=== PATIENT | female | born 1980 | race Hispanic/Latino ===

== ENCOUNTER 2022-10-10 11:11 | Emergency (ER) | payer OTHER ==
--- OUTSIDE RECORDS SUMMARY | 2022-10-10 11:16 | XMS REPORT | Continuity of Care Document ---
:1980 Author Organization [facility] t Address [address] [facility] [address] [place] [address] Care Team Providers Name Role Phone DANIELLE SHELTON Primary Care Physician Unavailable MARCUS LONG Attending Clinician Unavailable Lin Knutson Attending Clinician Doctor Unassigned, [place] Attending Clinician Unavailable LIN TSANG Attending Clinician Unavailable DANIELLE SHELTON Attending Clinician Unavailable Coy Danielle IVAN Attending Clinician [phone] EkRasheeda woo I Attending Clinician Unavailable Rasheeda Harrell I Admitting Clinician Unavailable Payers Payer Name Policy Type Policy Number Effective Date Expiration Date S [facility] [id number] 2021 00:00:00 Problems Condition Condition Condition Status Onset Resolution Last Treating Co mments Source Name Details Category Date Date Treatment Clinician Date Encounter Encounter Disease Active Uni vers for for 11-07 ity [place] of [place] Medical other other Branch contracept contracept precious precious Screening Screening Disease Active Uni vers examinatio examinatio 4-04 it y of n for STD n for STD 00:00[place] (sexually (sexually 00 Medi prateek transmitte transmitte Br anch d disease) d disease) Elevated Elevated Disease Active Unive rs blood blood 4-04 ity of pressure pressure 00:00: [place] reading reading 00 Medical without without Branch diagnosis diagnosis of of hypertensi hypertensi on on BMI BMI Disease Active Univers 33.0-33.9, 33.0-33.9, 4-04 it y of adult adult 00:00: [place] 00 Medical Branch Bilateral Bilateral Disease Active Uni vers breast breast 404 ity of lump lump 00:00: [place] 00 Medical Branch Absent Absent Disease Active Univers menstruati menstruati 3-16 it y of on on 00:00: [place] 00 Medical Branch History of History of Disease Active U nivers bilateral bilateral 3-16 ity of tubal tubal 00:00: [place] ligation ligation 00 Medica l Branch Class 1 Class 1 Disease Active Univers obesity obesity 3-16 ity of due to due to 00:00: [place] excess excess 00 Medical calories calories Branch with body with body mass index mass index (BMI) of (BMI) of 33.0 to 33.0 to 33.9 in 33.9 in adult, adult, unspecifie unspecifie d whether d whether serious serious comorbidit comorbidit y present y present Allergies, Adverse Reactions, Alerts Allergy Allergy Status Severity Reaction(s) Onset Inactive Treating Comm ents Source Name Type Date Date Clinician No Known DA Active [facility] Cont[facility] [place] [facility] No Known DA Active [facility] Drug 08-13 [place] All[facility] No Known DA Active U [facility] Food 08-13 [place] All[facility]ie [facility] No Known DA Active [facility] Other 08-13 [place] All[facility]ie 00:[facility]: [facility] NO KNOWN Drug Active Univers ALLERGIE Class ity of S [facility] Social History Social Habit Start Date Stop Date Quantity Comments Source Alcohol intake 2021-11-07 2021-11-07 Current University of 00:00:00 00:00:00 non-drinker of [facility] alcohol Branch (finding) Tobacco use and 2018-05-31 2018-05-31 Never used Universit y of exposure 00:00:00 00:00:00 [facility] History of 2006-05-31 Smoker University of tobacco use 00:00:00 [facility] Sex Ass[birth year] At [birth year] Universit y of 00:00:00 00:00:00 [facility] Smoking Status Start Date Stop Date Source Former smoker 2018-05-31 00:00:00 2018-05-31 00:00:00 Universi ty of [facility] Medications Ordered Filled Start Stop Current Ordering Indication Dosage Frequency Signature Comments Components Source Medication Medication Date Date Medication? Clinician (SIG) Name Name No known No Univers medications 4-04 ity of 08:55: [address] No known No Univers medications 4-04 ity of 08:55: [address] Immunizations Ordered Filled Immunization Date Status Comments Sourc e Immunization Name Name SARS-COV-2 COVID-19 2021-04-12 Completed Unive rsity of PFIZER VACCINE 00:00:00 [facility] SARS-COV-2 COVID-19 2021-04-12 Completed Unive rsity of PFIZER VACCINE 00:00:00 [facility] SARS-COV-2 COVID-19 2021-03-12 Completed Unive rsity of PFIZER VACCINE 00:00:00 [facility] SARS-COV-2 COVID-19 2021-03-12 Completed Unive rsity of PFIZER VACCINE 00:00:00 [facility] Influenza Virus 2020-10-19 Completed Universit y of Vaccine Quad .5 mL 00:00:00 [facility] IM 6+ MO Branch Influenza Virus 2020-10-19 Completed Universit y of Vaccine Quad .5 mL 00:00:00 [facility] IM 6+ MO Branch Influenza Virus 2018-05-31 Completed Universit y of Vaccine Quad .5 mL 00:00:00 [facility] IM 6+ MO Branch TDAP 2018-05-31 Completed University of 00:00:00 [facility] Influenza Virus 2018-05-31 Completed Universit y of Vaccine Quad .5 mL 00:00:00 [facility] IM 6+ MO Branch TDAP 2018-05-31 Completed University 00:00:00 [facility] PPD (TB) 2014-05-31 Completed University 00:00:00 [facility] PPD (TB) 2014-05-31 Completed University 00:00:00 [facility] TDAP 2008-05-01 Completed University of 00:00:00 [facility] TDAP 2008-05-01 Completed University 00:00:00 [facility] Procedures Procedure Date / Time Performed Performing Clinician Sourc e EXTERNAL PROVIDER 2022-01-09 05:01:00 Doctor Unasslindy, Kayleen Univ [facility] RECORDS Name [facility] Encounters Start End Encounter Admission Attending Care Care Encounter Source Date/Time Date/Time Type Type Clinicians Facility Department ID 2022-11-07 2022-11-07 Outpatient R [facility] [id number] Univers 08:15:00 08:15:00 MARCUS chan o f [facility] 2022-01-11 2022-01-11 Telephone [facility] [id number] Univers 00:00:00 00:00:00 Lin Fairbanks FORMING TUBE SELECTOR [id number] ity of [facility] [id number] Wayne as MATERNAL [phone] Med ical & CHILD [address] [place] [address] 2022-01-09 2022-01-09 Orders Doctor BOSSMAN [id number] Univers 00:00:00 00:00:00 Only Unassigned, VÍCTOR [id number] ity of [place] [facility] [id number] Wayne as [phone] [address] 2021-12-16 2021-12-16 Orders Doctor BOSSMAN [id number] Univers 00:00:00 00:00:00 Only Unassigned, VÍCTOR [id number] ity of [place] [facility] [id number] Wayne as [phone] [address] 2021-12-16 2021-12-16 Telephone [facility] [id number] Univers 00:00:00 00:00:00 Poloa R FORMING TUBE SELECTOR [id number] ity of REGIONAL [id number] Wayne as MATERNAL [phone] [facility] ical & CHILD [address] [place] [address] 2021-12-06 2021-12-06 Telephone [facility] [id number] Univers 00:00:00 00:00:00 Roshunda R [employer]MING T[employer] SELECTOR [id number] ity of REGIONAL [id number] Wayne as MATERNAL [phone] [facility] [address] [place] [address] 2021-12-06 2021-12-06 [facility] [id number] Univers 00:00:00 00:00:00 Roshunda R [employer]MING T[employer] SELECTOR [id number] ity of REGIONAL [id number] Wayne as MATERNAL [id number] [facility] & CHILD [address] [place] [address] 2021-12-05 2021-12-05 [facility] [id number] Univers 00:00:00 00:00:00 Rosnda R [employer]MING T[employer] SELECTOR [id number] ity of REGIONAL [id number] Wayne as MATERNAL [phone] [facility] & CHILD [address] [place] [address] 2021-11-07 2021-11-07 [facility] [id number] Univers 08:15:00 09:27:[address] 2021-11-07 2021-11-07 Outpatient [facility] [id number] Univers 08:15:00 09:27:39 ROSNDA ity o f [facility] 2021-11-07 2021-11-07 Office [facility] [id number] Univers 08:15:00 09:27:39 Visit Rosnda R [employer] [id number] ity of REGIONAL [id number] Wayne as MATERNAL [id number] [facility] [address] [place] [address] 2021-11-07 2021-11-07 Deejay KEITA [id number] Univers 00:00:00 00:00:00 Only Unassigned, VÍCTOR [id number] ity of [place] [facility] [id number] Wayne as [phone] [address] 2021-10-18 2021-10-18 Outpatient R [facility] [id number] Univers 08:00:00 08:00:00 DANIELLE ity [facility] 2021-05-11 2021-05-11 Telephone [facility] [id number] Univers 00:00:00 00:00:00 Danielle L FORMING TUBE SELECTOR [id number] i ty of [facility] [id number] Wayne as MATERNAL [phone] [facility] & CHILD [address] [place] [address] 2021-01-21 2021-01-21 Outpatient R [facility] [id number] Univers 08:45:00 08:45:[facility] 2021-01-07 Outpatient R [facility] [id number] Univers 09:45:00 09:45:00 [facility] 2020-12-20 2020-12-20 Outpatient R [facility] [id number] Univers 09:30:00 09:30:00 [facility] 2020-10-19 2020-10-19 Outpatient R [facility] [id number] Univers 09:15:00 09:15:00 [facility] 2020-04-12 2020-04-02 Inpatient STAR Harrell, [facility] [id number] [id number] [facility] 08:00:00 11:08:12 [place] [address] [facility] 2020-03-11 2020-03-11 Outpatient [facility] PDPFEJL TPY COH 00:00:00 00:00:00 [id number] Results Test Description Test Time Test Comments Results Result [facility] e Comments BREAST ULTRASOUND 2021-12-07 BILATERAL 10:04:54 Name: Justino : 1980 Sex: F - DIAG MAMM BILATERAL [facility] CAD DIGITALBILATERAL DIGITAL DIAGNOSTIC MAMMOGRAM 3D/2D WITH CAD: 12/07/2021LINICAL: Bilateral breast masses. Digital breast tomosynthesis was performed in addition to routine CC and MLO views. Current mammographic images were evaluated by [employer] CAD (computer-aided detection) software. No prior exams were available for comparison. There are scattered fibroglandular tissues in both breasts. There is a 2.5 cm oval mass in the right breast at 12 o'clock. No other significant masses, calcifications, or other findings are seen in either breast. INCOMPLETE: ADDITIONAL IMAGING EVALUATION NEEDEDBilateral ultrasound pending for additional evaluation. - BREAST ULTRASOUND BILATERALULTRASOUND OF BOTH BREASTS AND BOTH AXILLA: 12/07/2021No prior exams were available for comparison. Real-time ultrasound of both breasts and both axilla and clinical breast exam were performed. The palpable mass felt by the patient is a 2.5 cm oval mass in the right breast at 12 o'clock, 3 cm from the nipple. Color flow imaging demonstrates that there is no increase in vascularity. No abnormalities were seen sonographically in the left breast or either axilla. IMPRESSION: SUSPICIOUS OF MALIGNANCY - FOLLOW-UP RECOMMENDEDThe 2.5 cm oval mass in the right breast needs histological evaluation. An ultrasound guided biopsy is recommended. Shira Allen M.D. dm/:12/07/2021 10:04:54 Entry: - 12/09/2021 14:12:51Imaging Technologist: Sayda TOMAS, [facility]-FWletter sent: BIRADS 4/5 Biopsy Mammogram BI-RADS: 0 Incomplete: Additional Imaging Evaluation Needed Ultrasound BI-RADS: 4 Suspicious abnormality DIAG MAMM 2021-12-07 BILATERAL CHI 10:04:54 CAD DIGITAL Name: Justino : 1980 Sex: F - DIAG MAMM BILATERAL [facility] CAD DIGITALBILATERAL DIGITAL DIAGNOSTIC MAMMOGRAM 3D/2D WITH CAD: 12/07/2021LINICAL: Bilateral breast masses. Digital breast tomosynthesis was performed in addition to routine CC and MLO views. Current mammographic images were evaluated by [employer] CAD (computer-aided detection) software. No prior exams were available for comparison. There are scattered fibroglandular tissues in both breasts. There is a 2.5 cm oval mass in the right breast at 12 o'clock. No other significant masses, calcifications, or other findings are seen in either breast. INCOMPLETE: ADDITIONAL IMAGING EVALUATION NEEDEDBilateral ultrasound pending for additional evaluation. - BREAST ULTRASOUND BILATERALULTRASOUND OF BOTH BREASTS AND BOTH AXILLA: 12/07/2021No prior exams were available for comparison. Real-time ultrasound of both breasts and both axilla and clinical breast exam were performed. The palpable mass felt by the patient is a 2.5 cm oval mass in the right breast at 12 o'clock, 3 cm from the nipple. Color flow imaging demonstrates that there is no increase in vascularity. No abnormalities were seen sonographically in the left breast or either axilla.
[2022-10-10] MEDS ORDERED: NA CHLORIDE 0.9% 1,000 ML ONE (11:52)
[2022-10-10 11:54] LABS: MCV 86.8 fL (80-100); RBC Red Blood Cell Count 4.26 M/uL (3.86-4.86)
[2022-10-10 12:26] LABS: Potassium 3.8 mmol/L (3.5-5.1); Troponin High Sensitivity 4.3 pg/mL (<58.9)
--- NOTE | 2022-10-10 12:56 | RAD REPORT ---
EXAM DESCRIPTION: CT - Head Brain Wo Cont - 10/10/2022 12:43 pm CLINICAL HISTORY: HEADACHE Headache, drowsiness COMPARISON: No comparisons TECHNIQUE: All CT scans are performed using dose optimization technique as appropriate and may inclu de automated exposure control or mA/KV adjustment according to patient size. FINDINGS: No intracranial hemorrhage, hydrocephalus or extra-axial fluid collection.No areas of brai n edema or evidence of midline shift. Mild paranasal sinus thickening. The calvarium is intact. IMPRESSION: No acute intracranial abnormality.
--- NOTE | 2022-10-10 12:58 | RAD REPORT ---
EXAM DESCRIPTION: CT - Head angio - 10/10/2022 12:43 pm CLINICAL HISTORY: headache, dizziness Headache, drowsiness, dizziness COMPARISON: Head Brain Wo Cont dated 10/10/2022 TECHNIQUE: CT angiography of the head was performed with MIPs. All CT scans are performed using dose optimization technique as appropriate and may include automated exposure control or mA/KV adjustment according to patient size. FINDINGS: No evidence of large vessel occlusion. No evidence of aneurysm is detected. No flow-limiti ng stenosis or vascular malformation identified. Antegrade flow is seen in the vertebral arteries. The vertebral arteries are codominant. The visualized dural venous sinuses are patent. IMPRESSION: No significant flow abnormality is detected.
--- NOTE | 2022-10-10 13:05 | RAD REPORT ---
EXAM DESCRIPTION: CT - Neck Angio - 10/10/2022 12:43 pm CLINICAL HISTORY: dizziness, headache, syncope Headache, drowsiness, dizziness and syncope COMPARISON: No comparisons TECHNIQUE: CT angiography of the neck vessels was performed with MIPs. All CT scans are performed using dose optimization technique as appropriate and may include automated exposure control or mA/KV adjustment according to patient size. FINDINGS: A left aortic arch is identified with normal three vessel configuration of the great vesse ls. No significant flow abnormality is seen of the common carotid bilaterally. No significant stenosis is identified involving the cervical segments of both internal carotid arteri es. Normal flow is seen within both vertebral arteries. IMPRESSION: No significant flow abnormality of the neck vessels is identified.
--- NOTE | 2022-10-10 15:10 | RAD REPORT ---
EXAM DESCRIPTION: RAD - Knee Left 3 View - 10/10/2022 2:57 pm CLINICAL HISTORY: fall, knee pain COMPARISON: No comparisons FINDINGS: No acute fracture or dislocation is seen. Small suprapatellar joint effusion is seen. If p ain persists, MRI followup would be recommended.
[2022-10-10] MEDS ORDERED: KETOROLAC 30 MG/ML INJ ONE (15:23)
[2022-10-10 15:48] VITALS: TEMP 97.9
[2022-10-10 15:50] VITALS: BP 145/78; O2SAT 100
--- NOTE | 2022-10-10 17:31 | EKG ---
Test Date: 2022-10-10 Test Time: 11:47:14 Campus Supervisor: DILSHAD MEASUREMENT RESULTS: Intervals: Rate: 52 MS: 140 QRSD: 78 QT: 444 QTc: 412 [place]: P: 45 MS: 140 QRS: 56 T: 23 INTERPRETIVE STATEMENTS: Sinus bradycardia Otherwise normal ECG No previous ECG available for comparison Electronically Signed On 10-10-22 17:30:30 [employer] MACHINE OPERATOR by Tai Panda
--- NOTE | 2022-10-27 14:17 | EDPHYS ---
Physician Documentation [facility] Name: Lucy Lamas Age: 41 yrs Sex: Female : 1980 Arrival Date: 10/10/2022 Time: 11:15 Bed Treatment Private MD: ED Physician Darryn Hunter HPI: 10/10 11:31 This 41 yrs old Female presents to ER via Ambulatory with complaints of jmm Dizziness, Headache. 11:31 The patient presents with lightheadedness. Onset: The symptoms/episode began/occurred jmm acutely, 1 week(s) ago. Is a 41-year-old female with no chronic medical conditions presents emerged part with complaints of headache along with syncopal episodes beginning last week. Patient states on the initial fall she injured her left knee. Denies any chest pain or shortness of breath. Complains now of abdominal headache. Denies any vomiting. Historical: - Allergies: 11:29 No Known Allergies; ld1 - PMHx: 11:29 None; ld1 - PSHx: 11:29 section; gastric sleve; Ligation of fallopian tube; Tummy tuck; ld1 - Immunization history:: Adult Immunizations up to date, Client reports receiving the 2nd dose of the Covid vaccine. - Social history:: Smoking status: Patient denies any tobacco usage or history of. Patient/guardian denies using alcohol. ROS: 11:31 Constitutional: Negative for fever, chills, and weight loss, Cardiovascular: Negative jmm for chest pain, palpitations, and edema, Respiratory: Negative for shortness of breath, cough, wheezing, and pleuritic chest pain. 11:31 MS/extremity: Positive for pain. 11:31 Neuro: Positive for dizziness, headache. 11:31 All other systems are negative. Exam: 11:31 Constitutional: This is a well developed, well nourished patient who is awake, alert, jmm and in no acute distress. Head/Face: atraumatic. Eyes: EOMI, no conjunctival erythema appreciated ENT: Moist Mucus Membranes Neck: Trachea midline, Supple Chest/axilla: Normal chest wall appearance and motion. Cardiovascular: Regular rate and rhythm. No edema appreciated Respiratory: Normal respirations, no respiratory distress appreciated Abdomen/GI: Non distended Back: Normal ROM Skin: General appearance color normal 11:31 Musculoskeletal/extremity: Pain noted to the left knee on range of motion, compartments are soft, full dorsalis pedis pulse, neurovascular. 11:31 Skin: Appearance: Color: normal in color. 11:31 Neuro: Orientation: is normal, Mentation: is normal, Memory: is normal. 11:31 Psych: Behavior/mood is pleasant, cooperative. Vital Signs: 11:28 BP 161 / 95; Pulse 58; Resp 18; Temp 97.9(TE); Pulse Ox 97% on R/A; Weight 83.91 kg; ld1 Height 5 ft. 6 in. ; Pain 6/10; 15:44 BP 145 / 78; Pulse 78; Resp 18; Pulse Ox 100% ; mb9 11:28 Body Mass Index 29.86 (83.91 kg, 167.64 cm) ld1 11:28 Pain Scale: Adult ld1 MDM: 11:31 Patient medically screened. [facility] 15:31 Data reviewed: vital signs, nurses notes. [facility] 15:32 Differential diagnosis: cardiac arrhythmia, idiopathic dizziness, near-syncope, [facility] vertigo, Internal derangement of the knee, fracture. I considered the following discharge prescriptions or medication management in the emergency department Medications were administered in the Emergency Department. See MAR. Independent interpretation of the following test(s) in the Emergency Department X-Ray: My interpretation is No fracture appreciated. Counseling: I had a detailed discussion with the patient and/or guardian regarding: the historical points, exam findings, and any diagnostic results supporting the discharge/admit diagnosis, lab results, radiology results, the need for outpatient follow up, to return to the emergency department if symptoms worsen or persist or if there are any questions or concerns that arise at home. 10/10 11:33 Order name: Basic Metabolic Panel [facility] 10/10 11:33 Order name: CBC with Diff [facility] 10/10 11:33 Order name: Troponin HS [facility] 10/10 11:57 Order name: CBC with Automated Diff; Complete Time: 11:58 EDSD 10/10 12:31 Order name: Basic Metabolic Panel; Complete Time: 13:02 [facility] 10/10 12:31 Order name: Troponin High Sensitivity; Complete Time: 13:02 [facility]SD 10/10 11:33 Order name: CT Head Angio [facility] 10/10 11:33 Order name: CT Head Brain wo Cont [facility] 10/10 11:33 Order name: CT Neck Angio [facility] 10/10 12:57 Order name: CT; Complete Time: 13:02 [facility] 10/10 12:58 Order name: CT; Complete Time: 13:02 [facility] 10/10 13:06 Order name: CT; Complete Time: 13:13 [facility] 10/10 14:43 Order name: Knee Left 3 View XRAY [facility] 10/10 15:10 Order name: RAD; Complete Time: 15:15 [facility] 10/10 11:33 Order name: EKG; Complete Time: 11:34 [facility] 10/10 11:33 Order name: Cardiac monitoring; Complete Time: 11:50 [facility] 10/10 11:33 Order name: EKG - Nurse/Tech; Complete Time: 11:50 [facility] 10/10 11:33 Order name: IV Saline Lock; Complete Time: 11:50 [facility] 10/10 11:33 Order name: Labs collected and sent; Complete Time: 11:50 [facility] 10/10 11:33 Order name: O2 Per Protocol; Complete Time: 11:50 [facility] 10/10 11:33 Order name: O2 Sat Monitoring; Complete Time: 11:50 [facility] 10/10 15:15 Order name: Jean-Paul wrap-joint; Complete Time: 15:21 [facility] Administered Medications: 11:50 Drug: NS 0.9% IV 1000 ml Route: IV; Rate: 1 bolus; Site: left antecubital; ld1 15:21 Drug: Ketorolac IVP 30 mg Route: IVP; Site: left antecubital; mb9 Disposition: 16:22 Co-signature as Attending Physician, Darryn JACKMAN was immediately available on-site ms3 in the Emergency Department for consultation in the care of the patient. Disposition Summary: 10/10/22 15:35 Discharge Ordered Location: Home jm Condition: Stable jmm Diagnosis - Headache jmm - Other internal derangements of left knee jmm - Syncope jmm Followup: marybethm - With: Private Physician - When: 2 - 3 days - Reason: Recheck today's complaints, Continuance of care, Re-evaluation by your physician Followup: princess - With: Jr Fortune MD - When: 2 - 3 days - Reason: Recheck today's complaints, Continuance of care, Re-evaluation by your physician Followup: [facility] - With: Sherman Taveras MD - When: 2 - 3 days - Reason: Recheck today's complaints, Continuance of care, Re-evaluation by your physician Followup: [facility] - With: Tai Panda MD - When: 2 - 3 days - Reason: Recheck today's complaints, Continuance of care, Re-evaluation by your physician Discharge Instructions: - Discharge Summary Sheet jm - General Headache Without Cause jmm - Syncope jmm - Acute Knee Pain, Adult [facility] Forms: - Medication Reconciliation Form [facility] - Thank You Letter [facility] - Antibiotic Education [facility] - Prescription Opioid Use [facility] Prescriptions: - Diclofenac Sodium 75 mg Oral Tablet Sustained Release - take 1 tablet by ORAL route 2 times per day; 30 tablet; Refills: 0, Product [facility] Selection Permitted - orphenadrine citrate 100 mg Oral Tablet Sustained Release - take 1 tablet by ORAL route 2 times per day As needed; 20 tablet; Refills: 0, [facility] Product Selection Permitted Signatures: Dispatcher [employer] EDRmoe Arita PA PA [facility] Darryn Hunter DO DO ms3 Rebeca Roman, RN RN ld1 Jane Figueredo RN RN mb9
--- NOTE | 2022-10-27 14:17 | ER ---
Nurse's Notes [facility] Name: Lucy Lamas Age: 41 yrs Sex: Female : 1980 Arrival Date: 10/10/2022 Time: 11:15 Bed Treatment Private MD: Diagnosis: Headache;Other internal derangements of left knee;Syncope Presentation: 10/10 11:28 Chief complaint: Patient states: Pt reports dizziness, headache X 3 days. Syncopal ld1 episode Sunday - hit left knee, denies hitting head. Coronavirus screen: At this time, the client does not indicate any symptoms associated with coronavirus-19. Ebola Screen: No symptoms or risks identified at this time. Initial Sepsis Screen: Does the patient meet any 2 criteria? No. Patient's initial sepsis screen is negative. Does the patient have a suspected source of infection? No. Patient's initial sepsis screen is negative. Risk Assessment: Do you want to hurt yourself or someone else? Patient reports no desire to harm self or others. Onset of symptoms was October 10, 2022 at 11:29. 11:28 Method Of Arrival: Ambulatory ld1 11:28 Acuity: RAGINI 3 ld1 Triage Assessment: 11:29 Headache History: Denies prior headaches. General: Appears in no apparent distress. ld1 comfortable, Behavior is calm, cooperative, appropriate for age. Pain: Complains of pain in face Pain does not radiate. Pain currently is 6 out of 10 on a pain scale. Quality of pain is described as throbbing, Pain began 2-3 days ago. Is continuous, Also complains of. EENT: No signs and/or symptoms were reported regarding the EENT system. Neuro: Level of Consciousness is awake, alert, obeys commands, Oriented to person, place, time, situation, Reports dizziness, headache. Cardiovascular: Capillary refill < 3 seconds Patient's skin is warm and dry. Respiratory: Airway is patent Respiratory effort is even, unlabored. GI: Abdomen is round non-distended. : No signs and/or symptoms were reported regarding the genitourinary system. Derm: No signs and/or symptoms reported regarding the dermatologic system. Musculoskeletal: No signs and/or symptoms reported regarding the musculoskeletal system. Historical: - Allergies: No Known Allergies; ld1 - PMHx: 11:29 None; ld1 - PSHx: 11:29 section; gastric sleve; Ligation of fallopian tube; Tummy tuck; ld1 - Immunization history:: Adult Immunizations up to date, Client reports receiving the 2nd dose of the Covid vaccine. - Social history:: Smoking status: Patient denies any tobacco usage or history of. Patient/guardian denies using alcohol. Assessment: 15:10 Reassessment: pt brought back to ER room. mb9 15:44 Reassessment: No changes from previously documented assessment. Patient and/or family mb9 updated on plan of care and expected duration. Pain level reassessed. Patient is alert, oriented x 3, equal unlabored respirations, skin warm/dry/pink. Pain: Complains of pain in left knee. Derm: Skin is pink, warm \T\ dry. Vital Signs: 11:28 BP 161 / 95; Pulse 58; Resp 18; Temp 97.9(TE); Pulse Ox 97% on R/A; Weight 83.91 kg; ld1 Height 5 ft. 6 in. ; Pain 6/10; 15:44 BP 145 / 78; Pulse 78; Resp 18; Pulse Ox 100% ; mb9 11:28 Body Mass Index 29.86 (83.91 kg, 167.64 cm) ld1 11:28 Pain Scale: Adult ld1 ED Course: 11:15 Patient arrived in ED. rg4 11:17 Rome Conklin PA is PHCP. jmm 11:17 Darryn Hunter DO is Attending Physician. jmm 11:29 Triage completed. ld1 11:29 Arm band placed on right wrist. ld1 11:50 Inserted saline lock: 20 gauge in left antecubital area, using aseptic technique. Blood ld1 collected. 15:35 Jr Fortune MD is Referral Physician. jmm 15:35 Sherman Taveras MD is Referral Physician. jmm 15:38 Tai Panda MD is Referral Physician. jmm 15:44 No provider procedures requiring assistance completed. IV discontinued, intact, mb9 bleeding controlled, No redness/swelling at site. Pressure dressing applied. Administered Medications: 11:50 Drug: NS 0.9% IV 1000 ml Route: IV; Rate: 1 bolus; Site: left antecubital; ld1 15:21 Drug: Ketorolac IVP 30 mg Route: IVP; Site: left antecubital; mb9 Outcome: 15:35 Discharge ordered by . princess 15:44 Discharged to home ambulatory. mb9 15:44 Condition: stable 15:44 Discharge instructions given to patient, Instructed on discharge instructions, follow up and referral plans. Demonstrated understanding of instructions, follow-up care, medications, Prescriptions given X 2. 15:44 Patient left the ED. mb9 Signatures: Rome Conklin PA PA jmm Garcia, Rubi rg4 Rebeca Roman, RN RN ld1 Jane Figueredo RN RN mb9
== END 2022-10-10 15:44 | disposition home or self-care (01) ==
LOC: ER 11:11
DX: R51.9 Headache, unspecified (principal); R55 Syncope and collapse; M23.8X2 Other internal derangements of left knee
CPT/HCPCS: 93005; 85025; 80048; 36415; 84484; 70450; 70496; 70498; 73562; 96374; 99284; Q9967; J7030

== ENCOUNTER 2022-12-25 10:46 | Emergency (ER) | payer OTHER ==
--- OUTSIDE RECORDS SUMMARY | 2022-12-25 10:54 | XMS REPORT | Continuity of Care Document ---
:[address] [facility] [place] Address [address] [facility] [address] [place] [address] Care Team Providers Name Role Phone EDEPTI CONNER Primary Care Physician Unavailable DEEPTI CONNER Attending Clinician Unavailable Deepti Fuentes Attending Clinician [phone] Doctor Unassigned, [place] Attending Clinician Unavailable Lin Knutson Attending Clinician LIN TSANG Attending Clinician Unavailable DANIELLE SHELTON Attending Clinician Unavailable Coy Danielle IVAN Attending Clinician [phone] Rasheeda Harrell I Attending Clinician Unavailable Rasheeda Harrell I Admitting Clinician Unavailable Payers Payer Name Policy Type Policy Number Effective Date Expiration Date Dasia mares AMANGIGROUP MOLINA [id number] 2022 00:00:00 Problems Condition Condition Condition Status Onset Resolution Last Treating Co mments Source Name Details Category Date Date Treatment Clinician Date Well woman Well woman Disease Active U nivers exam exam 4-04 ity of 00:00: [place] 00 Medical Branch Encounter Encounter Disease Active Uni vers for for 11-07 ity of surve[place] of [place] other other Branch contracept contracept precious precious Screening Screening Disease Active Uni vers examinatio examinatio 11-07 it y of n for STD n [place] ([place] (sexually 00 Medi prateek transmitte transmitte Br anch d disease) d disease) Elevated Elevated Disease Active Unive rs blood blood 11-07 ity of pressure pressure 00:00: [place] reading reading 00 Medical without without Branch diagnosis diagnosis of of hypertensi hypertensi on on BMI BMI Disease Active Univers 33.0-33.9, 33.0-33.9, 11-07 it y of adult adult 00:00: [place] [facility] Bilateral Bilateral Disease Active Uni vers breast breast 11-07 ity of lump lump 00:00: [place] [address] Medical Branch Absent Absent Disease Active Univers menstruati menstruati 3-16 it y of on on 00:00: [place] [address] Medical Branch History of History of Disease Active U nivers bilateral bilateral 3-16 ity of tubal tubal 00:00: [place] ligation ligation 00 Medica l Branch Class 1 Class 1 Disease Active Univers obesity obesity 3-16 ity of due to due to 00:00: [place] excess excess 00 Medical calories calories Branch [...] No Known DA Active U [facility] Contrast 08-13 [place] [facility] No Known DA Active U [facility] Drug 08-13 [place] All[facility]ie [facility]: [facility] No Known DA Active U [facility] Food 08-13 [place] All[facility]ie 00:[facility]: [facility] No Known DA Active U 2007-0 [facility] Other 1-08 [place] Allergie 00:00: e s [address] [place] [address] NO KNOWN Drug Active Univers ALLERGIE Class ity of S [facility] Social History Social Habit Start Date Stop Date Quantity Comments Source Exposure to 2022-10-28 2022-11-07 Not sure University of SARS-CoV-2 00:00:00 08:22:00 [facility] (event) Branch Alcohol intake 2022-11-07 2022-11-07 Current University of 00:00:00 00:00:00 [facility]finding[facility] Branch Tobacco use and 2018-05-31 2018-05-31 Smokeless tobacco Un iversity of exposure 00:00:00 00:00:00 non-user [facility] History of 2006-05-31 Cigarette Smoker Universi ty of tobacco use 00:00:00 [facility] Sex Ass[birth year] Universit y of 00:00:00 00:00:00 [facility] Smoking Status Start Date Stop Date Source Ex-smoker 2018-05-31 00:00:00 2018-05-31 00:00:00 Universi ty of [facility] Medications Ordered Filled Start Stop Current Ordering Indication Dosage Frequency Signature Comments Components Source Medication Medication Date Date Medication? Clinician (SIG) Name Name No known No Univers medications - ity of 08:55: [address] No known No Univers medications - ity of 08:55: [address] Immunizations Ordered Filled Immunization Date Status Comments Sour e Immunization Name Name Influenza Virus 2022-11-07 Completed Universit y of Vaccine Quad IM, 00:00:00 [facility] dical Preserv and ABX Branch Free 6 MO-64 YRS HPV9 2022-11-07 Completed University of 00:00:00 [facility] Influenza Virus 2022-11-07 Completed Universit y of Vaccine Quad IM, 00:00:00 [facility] dical Preserv and ABX Branch Free 6 MO-64 YRS HPV9 2022-11-07 Completed University of 00:00:00 [facility] SARS-COV-2 COVID-19 2021-04-12 Completed Unive rsity of PFIZER VACCINE 00:00:00 [facility] SARS-COV-2 COVID-19 2021-04-12 Completed Unive rsity of PFIZER VACCINE 00:00:00 [facility] SARS-COV-2 COVID-19 2021-04-12 Completed Unive rsity of PFIZER VACCINE 00:00:00 [facility] SARS-COV-2 COVID-19 2021-04-12 Completed Unive rsity of PFIZER VACCINE 00:00:00 [facility] SARS-COV-2 COVID-19 2021-04-12 Completed Unive rsity of PFIZER VACCINE 00:00:00 [facility] SARS-COV-2 COVID-19 2021-03-12 Completed Unive rsity of PFIZER VACCINE 00:00:00 [facility] SARS-COV-2 COVID-19 2021-03-12 Completed Unive rsity of PFIZER VACCINE 00:00:00 [facility] SARS-COV-2 COVID-19 2021-03-12 Completed Unive rsity of PFIZER VACCINE 00:00:00 [facility] SARS-COV-2 COVID-19 2021-03-12 Completed Unive rsity of PFIZER VACCINE 00:00:00 [facility] SARS-COV-2 COVID-19 2021-03-12 Completed Unive rsity of PFIZER VACCINE 00:00:00 [facility] Influenza Virus 2020-10-19 Completed Universit y of Vaccine Quad .5 mL 00:00:00 [facility] IM 6+ MO Branch Influenza Virus 2020-10-19 Completed Universit y of Vaccine Quad .5 mL 00:00:00 [place] [facility] IM 6+ MO Branch Influenza Virus 2020-10-19 Completed Universit y of Vaccine Quad .5 mL 00:00:00 [place] [facility] IM 6+ MO Branch Influenza Virus 2020-10-19 Completed Universit y of Vaccine Quad .5 mL 00:00:00 [place] [facility] IM 6+ MO Branch Influenza Virus 2020-10-19 Completed Universit y of Vaccine Quad .5 mL 00:00:00 [place] [facility] IM 6+ MO Branch Influenza Virus 2018-05-31 Completed Universit y of Vaccine Quad .5 mL 00:00:00 [place] [facility] IM 6+ MO Branch TDAP 2018-05-31 Completed University of 00:00:00 [facility] Influenza Virus 2018-05-31 Completed Universit y of Vaccine Quad .5 mL 00:00:00 [place] [facility] IM 6+ MO Branch TDAP 2018-05-31 Completed University of 00:00:00 [facility] Influenza Virus 2018-05-31 Completed Universit y of Vaccine Quad .5 mL 00:00:00 [place] [facility] IM 6+ MO Branch TDAP 2018-05-31 Completed University of 00:00:00 [facility] Influenza Virus 2018-05-31 Completed Universit y of Vaccine Quad .5 mL 00:00:00 [place] [facility] IM 6+ MO Branch TDAP 2018-05-31 Completed University of 00:00:00 [facility] Influenza Virus 2018-05-31 Completed Universit y of Vaccine Quad .5 mL 00:00:00 [facility] IM 6+ MO Branch TDAP 2018-05-31 Completed University of 00:00:00 [facility] PPD (TB) 2014-05-31 Completed University of 00:00:00 [facility] PPD (TB) 2014-05-31 Completed University of 00:00:00 [facility] PPD (TB) 2014-05-31 Completed University of 00:00:00 [facility] PPD (TB) 2014-05-31 Completed University of 00:00:00 [facility] PPD (TB) 2014-05-31 Completed University of 00:00:00 [facility] TDAP 2008-05-01 Completed University of 00:00:00 [facility] TDAP 2008-05-01 Completed University of 00:00:00 [facility] Branch TDAP 2008-05-01 Completed University of 00:00:00 [facility] TDAP 2008-05-01 Completed University of 00:00:00 [facility] TDAP 2008-05-01 Completed University of 00:00:00 [facility] Vital Signs Vital Name Observation Time Observation Value Comments Source Systolic blood 2022-11-07 13:41:00 139 mm[Hg] Univer sity of pressure [facility] Diastolic blood 2022-11-07 13:41:00 84 mm[Hg] Unive rsity of pressure [facility] Heart rate 2022-11-07 13:23:00 56 /min [facility] Body temperature 2022-11-07 13:23:00 36.39 Kathy [facility] Respiratory rate 2022-11-07 13:23:00 18 /min [facility] Body height 2022-11-07 13:23:00 175.3 cm [facility] Body weight 2022-11-07 13:23:00 94.257 kg [facility] BMI 2022-11-07 13:23:00 30.69 kg/m2 [facility] Procedures Procedure Date / Time Performed Performing Clinician Lalita carter GARDASIL 9 (HPV 9V) 2022-11-07 14:05:09 Deepti Conner Uni [facility] VACCINE [facility] FLU VACC (), 2022-11-07 13:43:52 Deepti Conner U [facility] 6 MO-64 YRS, .5ML, IM, Medical [place] ranch QUAD (FLUCELVAX) ASSIGNMENT OF BENEFITS 2022-11-07 13:00:05 Doctor Unassigned, No [facility] Name [facility] EXTERNAL PROVIDER 2022-01-09 05:01:00 Doctor Unassigned, No [facility] RECORDS Name [facility] Encounters Start End Encounter Admission Attending Care Care Encounter Source Date/Time Date/Time Type Type Clinicians Facility Department ID 2022-12-26 2022-12-26 Outpatient Magdi CONNER [facility] [id number] Univers 09:45:00 09:45:00 DEEPTI mendoza [facility] 2022-12-14 2022-12-14 Outpatient Magdi CONNER [facility] [id number] Univers 08:00:00 08:00:00 DEEPTI brown [facility] 2022-12-05 2022-12-05 Outpatient Magdi CONNER [facility] [id number] Univers 14:00:00 14:00:00 DEEPTI mendoza [facility] 2022-11-07 2022-11-07 [facility] [id number] Univers 08:15:00 09:06:27 Visit Deepti Dias [employer] [id number] ity [facility] [id number] [place] as MATERNAL [phone] [facility] ical & CHILD [address] [place] [address] 2022-11-07 2022-11-07 Outpatient Magdi CONNER [facility] [id number] Univers 08:15:00 09:06:27 DEEPTI davidsony o f [facility] 2022-11-07 2022-11-07 Orders Doctor BOSSMAN [id number] Univers 00:00:00 00:00:00 Only Unassigned, VÍCTOR [id number] ity of [place] [facility] [id number] [place] as [phone] [address] 2022-01-11 2022-01-11 Telephone [facility] [id number] Univers 00:00:00 00:00:00 Roshunda R [employer] [id number] ity of REGIONAL [id number] [place] as MATERNAL [phone] [facility] ical & CHILD [address] [place] [address] 2022-01-09 2022-01-09 Orders Doctor BOSSMAN [id number] Univers 00:00:00 00:00:00 Only Unassigned, VÍCTOR [id number] ity of [facility] [id number] [place] as [id number] [address] 2021-12-16 2021-12-16 Orders Doctor BOSSMAN [id number] Univers 00:00:00 00:00:00 Only Unassigned, VÍCTOR [id number] ity of [place] [facility] [id number] [place] as [phone] [address] 2021-12-16 2021-12-16 Telephone [facility] [id number] Univers 00:00:00 00:00:00 Roshunda R [employer] [id number] ity of REGIONAL [id number] [place] as MATERNAL [id number] [facility] ical & CHILD [address] [place] [address] 2021-12-06 2021-12-06 Telephone [facility] [id number] Univers 00:00:00 00:00:00 Roshunda R [employer] [id number] ity of REGIONAL [id number] [place] as MATERNAL [phone] Med ical & CHILD [address] [place] [address] 2021-12-06 2021-12-06 Telephone [facility] [id number] Univers 00:00:00 [facility]:00:[facility] [id number] ity of [facility] [id number] [place] as MATERNAL [phone] [address] 2021-12-05 2021-12-05 Telephone [facility] [id number] Univers 00:00:00 00:00:00 [facility] R [employer] [id number] ity of [facility] [id number] [place] as MATERNAL [phone] [address] 2021-11-07 2021-11-07 Outpatient [facility] [id number] Univers 08:15:00 09:27:39 [facility] 2021-11-07 2021-11-07 [facility] [id number] Univers 08:15:00 09:27:39 [facility] 2021-11-07 2021-11-07 Office [facility] [id number] Univers 08:15:00 09:27:39 Visit [facility] Magdi [employer] [id number] ity of [facility] [id number] [place] as MATERNAL [phone] [address] 2021-11-07 2021-11-07 Orders Doctor KEITA [id number] Univers 00:00:00 00:00:00 Only Unassigned, VÍCTOR [id number] ity of [place] [facility] [id number] [place] as [phone] [address] 2021-10-18 2021-10-18 [id number] Univers 08:00:00 08:00:00 DANIELLE [facility] 2021-05-11 2021-05-11 Telephone [facility] [id number] Univers 00:00:00 00:00:00 Danielle Silva [employer] [id number] i ty [facility] [id number] [place] as MATERNAL [phone] Med ical & CHILD [address] [place] [address] 2021-01-21 2021-01-21 Outpatient R [facility] [id number] Univers 08:45:00 08:45:00 [facility] 2021-01-07 2021-01-07 Outpatient R [facility] [id number] Univers 09:45:00 09:45:00 [facility] 2020-12-20 2020-12-20 Outpatient R [facility] [id number] Univers 09:30:00 09:30:00 [facility] 2020-10-19 2020-10-19 Outpatient R [facility] [id number] Univers 09:15:00 09:15:00 [facility] 2020-04-12 2020-04-02 Inpatient STAR Harrell, [facility] 3DAY [id number] [facility] 08:00:00 11:08:[address] [facility] 2020-03-11 2020-03-11 Outpatient COH [facility] PDPFEJL TPY COH 00:00:00 00:00:00 [id number] Results Test Description Test Time Test Comments Results Result [facility] e Comments BREAST ULTRASOUND 2021-12-07 BILATERAL 10:04:54 Name: Justino : 1980 Sex: F - DIAG MAMM BILATERAL [facility]I CAD DIGITALBILATERAL DIGITAL DIAGNOSTIC MAMMOGRAM 3D/2D WITH CAD: 12/07/2021LINICAL: Bilateral breast masses. Digital breast tomosynthesis was performed in addition to routine CC and MLO views. Current mammographic images were evaluated by [employer] CAD (computer-aided detection) software. No prior exams [...] - 12/09/2021 14:12:51Imaging Technologist: Sayda TOMAS, [facility]-FWletter sent: BIRADS 4/5 Biopsy Mammogram [...] views. Current mammographic images were evaluated by [employer] CAD (computer-aided detection) software. No prior exams [...]
[2022-12-25 11:54] LABS: Absolute Lymphocytes (CBC) 2.4 K/uL (0.7-4.9); Hematocrit 38.5 % (36.0-45.0); Lymphocytes % 38.8 % (15.3-44.8); RBC Red Blood Cell Count 4.42 M/uL (3.86-4.86)
[2022-12-25 11:54] LABS: Specific Gravity 1.025 (1.005-1.030); Urine Bilirubin NEGATIVE (Negative); Urine Blood Negative (Negative); Urine Clarity Clear (Clear); Urine Color Yellow (Yellow); Urine Glucose NEGATIVE (Negative); Urine Protein NEGATIVE (Negative); Urine Urobilinogen Normal (Normal); Urine pH 6.5 (5.0-7.0)
[2022-12-25 12:13] LABS: Albumin 3.5 g/dL (3.4-5.0); Bilirubin Direct 0.2 mg/dL (0-0.2); Bilirubin Indirect, Calculated 0.2 mg/dL (0.2-0.8); Bilirubin Total 0.4 mg/dL (0.2-1.0); Magnesium 2.1 mg/dL (1.6-2.4); Potassium 3.9 mEq/L (3.5-5.1); Protein, Total 7.1 g/dL (6.4-8.2); Troponin High Sensitivity 4.9 pg/mL (<58.9)
--- NOTE | 2022-12-25 13:12 | RAD REPORT ---
EXAM DESCRIPTION: RAD - Foot Left 3 View - 12/25/2022 1:00 pm CLINICAL HISTORY: PAIN COMPARISON: <Comparisons> FINDINGS: Mild soft tissue swelling is seen adjacent to the base of the fifth metatarsal. No fractur e or radiopaque foreign body.
--- NOTE | 2022-12-25 13:42 | ER ---
Nurse's Notes [facility] Name: Lucy Lamas Age: 42 yrs Sex: Female : 1980 Arrival Date: 12/25/2022 Time: 10:46 Bed 12 Private MD: Diagnosis: Syncope;Pain in left foot Presentation: 12/25 11:08 Acuity: RAGINI 3 ph 11:22 Chief complaint: Patient states: N/V/D and syncopal episode 6 days ago, has felt dizzy ph since. Coronavirus screen: Vaccine status: Patient reports receiving the 2nd dose of the covid vaccine. Ebola Screen: No symptoms or risks identified at this time. Initial Sepsis Screen: Does the patient meet any 2 criteria? No. Patient's initial sepsis screen is negative. Does the patient have a suspected source of infection? No. Patient's initial sepsis screen is negative. Risk Assessment: Do you want to hurt yourself or someone else? Patient reports no desire to harm self or others. Onset of symptoms was December 25, 2022. 11:22 Method Of Arrival: Ambulatory ph Historical: - Allergies: 13:56 No Known Allergies; ko1 - Immunization history:: Adult Immunizations up to date. - Social history:: Smoking status: Reported history of juuling and/or vaping. Screenin:56 [facility] Fall Risk Assessment (Adult) History of falling in the last 3 months, ko1 including since admission No falls in past 3 months (0 pts) Confusion or Disorientation No (0 pts) Intoxicated or Sedated No (0 pts) Impaired Gait No (0 pts) Mobility Assist Device Used No (0 pt) Altered Elimination No (0 pt) Score/Fall Risk Level 0 - 2 = Low Risk Oriented to surroundings, Maintained a safe environment, Educated pt \T\ family on fall prevention, incl call for assistance when getting out of bed, Assessed \T\ reinforced patient's understanding of fall precautions, Provided non-skid footwear, Hourly rounding (assess needs \T\ fall precautionary measures) done, Used ambulatory aids as needed (educated on \T\ assisted with), Used gait belt as appropriate. Abuse screen: Denies threats or abuse. Denies injuries from another. Nutritional screening: No deficits noted. Tuberculosis screening: No symptoms or risk factors identified. Assessment: 13:00 General: Appears in no apparent distress. comfortable, Behavior is calm, cooperative, ko1 appropriate for age. Pain: Complains of pain in left foot and lateral side of left foot. Neuro: No deficits noted. Cardiovascular: No deficits noted. Respiratory: No deficits noted. GI: No deficits noted. : No deficits noted. EENT: No deficits noted. Derm: Skin dog bite Skin is pink, warm \T\ dry. Musculoskeletal: No deficits noted. Vital Signs: 11:22 BP 141 / 84; Pulse 64; Resp 18; Temp 97.9; Pulse Ox 99% on R/A; Weight 92.99 kg; Height ph 5 ft. 8 in. ; 12:17 BP 137 / 88 Supine; Pulse 57; Resp 15; Pulse Ox 100% on R/A; zm 12:19 BP 143 / 88 Sitting; Pulse 55; Resp 15; Pulse Ox 100% on R/A; zm 12:21 BP 140 / 87; Pulse 64; Resp 16; Pulse Ox 100% on R/A; zm 13:56 BP 142 / 84; Pulse 64; Resp 16; Pulse Ox 98% ; ko1 11:22 Body Mass Index 31.17 (92.99 kg, 172.72 cm) ph ED Course: 10:48 Patient arrived in ED. am2 10:49 [facility]anes[facility] Cortez [facility]-C [facility] kb 10:49 Luis Garcia MD is Attending Physician. kb 11:08 Triage completed. ph 11:47 Inserted saline lock: 20 gauge in left antecubital area, using aseptic technique. Blood zm collected. 11:47 Basic Metabolic Panel Sent. zm 11:47 CBC with Diff Sent. zm 11:47 Hepatic Function Sent. zm 11:47 Magnesium Sent. zm 11:47 Troponin High Sensitivity Sent. zm 11:47 Urinalysis w/ reflexes Sent. zm 12:08 EKG done, by ED staff, reviewed by Tanesha WATTS. zm 12:18 Lucy Borrego, RESHMA is Primary Nurse. ko1 13:02 Foot Left 3 View XRAY In Process Unspecified. EDMS 13:56 No provider procedures requiring assistance completed. IV discontinued, intact, ko1 bleeding controlled, No redness/swelling at site. Pressure dressing applied. 13:56 Patient has correct armband on for positive identification. Bed in low position. Call ko1 light in reach. Side rails up X 1. Client placed on continuous cardiac and pulse oximetry monitoring. NIBP monitoring applied. cafeteria monitor on. Administered Medications: No medications were administered Medication: 13:56 VIS not applicable for this client. ko1 Outcome: 13:41 Discharge ordered by . kaycee 13:58 Discharged to home ambulatory. ko1 13:58 Condition: stable 13:58 Discharge instructions given to patient, Instructed on discharge instructions, follow up and referral plans. medication usage, Demonstrated understanding of instructions, follow-up care, medications, wound care, Prescriptions given X 1. 13:58 Patient left the ED. ko1 Signatures: Dispatcher [employer] EDMS Tanesha Cortez, CARTON STAPLER-C CARTON STAPLER-Cecily Awad, RN RN Tamika Donis Zaina zm Oliver, Kathy, RN RN ko1 Corrections: (The following items were deleted from the chart) 13:57 13:56 PSHx: section; ko1 ko1 13:57 13:56 PSHx: gastric sleve; ko1 ko1 13:57 13:56 PSHx: Tummy tuck; ko1 ko1 13:57 13:56 PSHx: Ligation of fallopian tube; ko1 ko1
--- NOTE | 2022-12-25 13:42 | EDPHYS ---
Physician Documentation [facility] Name: Lucy Lamas Age: 42 yrs Sex: Female : 1980 Arrival Date: 12/25/2022 Time: 10:46 Bed 12 Private MD: ED Physician Luis Garcia HPI: 12/25 13:47 This 42 yrs old Female presents to ER via Ambulatory with complaints of Dog kb Bite, Foot Pain. 13:47 The patient has experienced syncope, lost consciousness. Onset: The symptoms/episode kb began/occurred 6 day(s) ago. Duration: This was a single episode. Context: the episode(s) was witnessed, by no one, occurred at home, occurred while the patient was using the restroom. Just prior to the episode the patient experienced vomiting. Associated injury: The patient did not suffer any apparent associated injury. Associated signs and symptoms: Pertinent positives: diarrhea, dizziness, vomiting. Current symptoms: Currently, the patient is not experiencing any symptoms, the patient feels back to baseline, no decreased level of consciousness, no confusion, no dysphasia, no headache, no paralysis, no visual changes. The patient has not experienced similar symptoms in the past. The patient has not recently seen a physician. [place] while there and developed n/v/d. States she was using the restroom 6 days ago and had a syncopal episode, but did not fall off of the toilet. States she has had intermittent dizziness since then. Reports v/d resolved. Also c/o left foot pain that has been going on for a while and that she was bit by her neighbor's dog one month ago so she would like that looked at because it feels like there is a lump under the skin. . Historical: - Allergies: 13:56 No Known Allergies; ko1 - Immunization history:: Adult Immunizations up to date. - Social history:: Smoking status: Reported history of juuling and/or vaping. ROS: 13:46 Constitutional: Negative for fever, chills, and weight loss. kb 13:46 MS/extremity: Positive for pain, of the lateral side of left foot. 13:46 Neuro: Positive for syncope. 13:46 All other systems are negative. Exam: 13:50 Constitutional: This is a well developed, well nourished patient who is awake, alert, kb and in no acute distress. Head/Face: Normocephalic, atraumatic. ENT: Moist Mucous membranes Cardiovascular: Regular rate and rhythm with a normal S1 and S2. No gallops, murmurs, or rubs. No pulse deficits. Respiratory: Respirations even and unlabored. No increased work of breathing. Talking in full sentences Abdomen/GI: Soft, non-tender. No distention Skin: Warm, dry with normal turgor. Normal color. MS/ Extremity: Pulses equal, no cyanosis. Neurovascular intact. Full, normal range of motion. Neuro: Awake and alert, GCS 15, oriented to person, place, time, and situation. Moves all extremities. Normal gait. 13:50 ECG was reviewed by the Attending Physician. Vital Signs: 11:22 BP 141 / 84; Pulse 64; Resp 18; Temp 97.9; Pulse Ox 99% on R/A; Weight 92.99 kg; Height ph 5 ft. 8 in. ; 12:17 BP 137 / 88 Supine; Pulse 57; Resp 15; Pulse Ox 100% on R/A; zm 12:19 BP 143 / 88 Sitting; Pulse 55; Resp 15; Pulse Ox 100% on R/A; zm 12:21 BP 140 / 87; Pulse 64; Resp 16; Pulse Ox 100% on R/A; zm 13:56 BP 142 / 84; Pulse 64; Resp 16; Pulse Ox 98% ; ko1 11:22 Body Mass Index 31.17 (92.99 kg, 172.72 cm) ph MDM: 10:49 Patient medically screened. kb 13:49 Differential Diagnosis: cardiac arrhythmia, idiopathic syncope, vasovagal episode. ECG kb was reviewed by the Attending Physician. Data reviewed: vital signs, nurses notes. Counseling: I had a detailed discussion with the patient and/or guardian regarding: the historical points, exam findings, and any diagnostic results supporting the discharge/admit diagnosis, lab results, radiology results, the need for outpatient follow up, a family practitioner, to return to the emergency department if symptoms worsen or persist or if there are any questions or concerns that arise at home. 12/25 11:07 Order name: Basic Metabolic Panel; Complete Time: 12:27 kb 12/25 11:07 Order name: CBC with Diff; Complete Time: 12:27 kb 12/25 11:07 Order name: Hepatic Function; Complete Time: 12:27 kb 12/25 11:07 Order name: Magnesium; Complete Time: 12:27 kb 12/25 11:07 Order name: Troponin High Sensitivity; Complete Time: 12:27 kb 12/25 11:07 Order name: Urinalysis w/ reflexes; Complete Time: 12:08 kb 12/25 12:28 Order name: Foot Left 3 View XRAY; Complete Time: 13:13 kb 12/25 11:07 Order name: EKG; Complete Time: 11:08 kb 12/25 11:07 Order name: Cardiac monitoring; Complete Time: 12:05 kb 12/25 11:07 Order name: EKG - Nurse/Tech; Complete Time: 12:05 kb 12/25 11:07 Order name: IV Saline Lock; Complete Time: 11:47 kb 12/25 11:07 Order name: Labs collected and sent; Complete Time: 11:47 kb 12/25 11:07 Order name: NPO; Complete Time: 11:47 kb 12/25 11:07 Order name: O2 Per Protocol; Complete Time: 11:47 kb 12/25 11:07 Order name: O2 Sat Monitoring; Complete Time: 11:47 kb 12/25 11:07 Order name: Orthostatics; Complete Time: 12:25 kb EC:50 Rate is 53 beats/min. Rhythm is regular. QRS [place] is Normal. ND interval is normal at kb 136 msec. QRS interval is normal at 80 msec. QT interval is normal at 431 msec. Administered Medications: No medications were administered Disposition: 17:43 Co-signature as Attending Physician, Luis Garcia MD I reviewed the patient's care rt provided by the Advanced Practice Provider and agree with the diagnosis and treatment plan. Disposition Summary: 12/25/22 13:41 Discharge Ordered Location: Home kb Condition: Stable kb Diagnosis - Syncope kb - Pain in left foot kb Followup: kb - With: Emergency Department - When: As needed - Reason: Worsening of condition Followup: kb - With: Private Physician - When: 2 - 3 days - Reason: Recheck today's complaints, Continuance of care, Re-evaluation by your physician Discharge Instructions: - Discharge Summary Sheet kb - Bradycardia, Adult kb - Musculoskeletal Pain kb - Syncope, [id number] kb Forms: - Medication Reconciliation Form kb - Thank You Letter kb - Antibiotic Education kb - Prescription Opioid Use kb Prescriptions: - Diclofenac Sodium 75 mg Oral tablet,delayed release (DR/EC) - take 1 tablet by ORAL route 2 times per day As needed; 30 tablet; Refills: 0, kb Product Selection Permitted Signatures: Dispatcher [employer] EDTanesha Gonzales FNP-C FNP-Ckb Oliver, Kathy, RN RN ko1 Luis Garcia MD MD rt Corrections: (The following items were deleted from the chart) 13:56 PSHx: section; ko1 ko1 13:56 PSHx: gastric sleve; ko1 ko1 13:56 PSHx: Tummy tuck; ko1 ko1 13:56 PSHx: Ligation of fallopian tube; ko1 ko1
[2022-12-25 14:06] VITALS: TEMP 97.9
[2022-12-25 14:12] VITALS: BP 142/84; O2SAT 98
--- NOTE | 2022-12-27 05:01 | EKG ---
Test Date: 2022-12-25 Test Time: 12:00:41 Rating Officer: KWABENA MEASUREMENT RESULTS: Intervals: Rate: 53 [place]: 136 QRSD: 80 QT: 460 QTc: 431 [place]: P: 58 [place]: 136 QRS: 80 T: 46 INTERPRETIVE STATEMENTS: Sinus bradycardia Otherwise normal ECG Compared to ECG 10/10/2022 11:47:14 No significant changes Electronically Signed On 12-27-22 04:54:54 CDT by Tino Mensah
== END 2022-12-25 13:58 | disposition home or self-care (01) ==
LOC: ER 10:46
DX: R55 Syncope and collapse (principal); M79.672 Pain in left foot; W54.0XXA Bitten by dog, initial encounter
CPT/HCPCS: 36415; 80048; 80076; 81003; 83735; 84484; 85025; 93005

== ENCOUNTER 2023-01-12 10:02 | Emergency (ER) | payer OTHER ==
--- OUTSIDE RECORDS SUMMARY | 2023-01-12 10:06 | XMS REPORT | Continuity of Care Document ---
:1980 Author Organization [facility] t Address [address] [facility] [address] [place] [address] Care Team Providers Name Role Phone DEEPTI CONNER Primary Care Physician Unavailable DEEPTI CONNER Attending Clinician Unavailable Deepti Fuentes Attending Clinician [phone] Doctor Unassigned, [place] Attending Clinician Unavailable Lin Knutson Attending Clinician LIN TSANG Attending Clinician Unavailable DANIELLE SHELTON Attending Clinician Unavailable Coy Danielle IVAN Attending Clinician [phone] Rasheeda Harrell I Attending Clinician Unavailable Rasheeda Harrell I Admitting Clinician Unavailable Payers Payer Name Policy Type Policy Number Effective Date Expiration Date Dasia mares AMANGIGROUP MOLINA [id number] 2022 00:00:00 Problems Condition Condition Condition Status [...] blood 11-07 ity of pressure pressure 00:00: [place] reading reading 00 Medical without without Branch diagnosis diagnosis of of hypertensi hypertensi on on BMI BMI Disease Active Univers 33.0-33.9, 33.0-33.9, 11-07 it y of adult adult 00:00: [place] [facility] Bilateral Bilateral Disease Active Uni vers breast breast 11-07 ity of lump lump 00:00: [place] [address] Medical Branch Absent Absent Disease Active Univers menstruati menstruati 3-16 it y of on on 00:00: [place] [address] Medical Branch History of History of Disease Active U nivers bilateral bilateral 3-16 ity of tubal tubal 00:00: [place] ligation ligation 00 Medica l Branch Class 1 Class 1 Disease Active Univers obesity obesity 3-16 ity of due to due to 00:00: [place] excess excess 00 Medical calories calories Branch [...] Clinician No Known DA Active U [facility] Other 08-13 [place] [facility] No Known DA Active U [facility] Contrast 08-13 [place] [facility] 00:[facility]: e [facility] No Known DA Active U [facility] Drug 08-13 [place] All[facility]ie 00:00: e s 00 [facility] No Known DA Active U 2007-0 [facility] Food 1-08 [facility] Allergklarissa 00:00: e s [address] [place] [address] NO KNOWN Drug Active [facility] ALLERGIE Class ity of S [facility] Social History Social Habit Start Date Stop Date Quantity Comments Source Exposure to 2022-10-28 2022-11-07 Not sure University of SARS-CoV-2 00:00:00 08:22:00 [facility] (event) Branch Alcohol intake 2022-11-07 2022-11-07 Current University of 00:00:00 00:00:00 non-drinker of [facility] alcohol (finding) Branch Tobacco use and 2018-05-31 2018-05-31 Smokeless tobacco Un iversity of exposure 00:00:00 00:00:00 non-user [facility] History of 2006-05-31 Cigarette Smoker Universi ty of tobacco use 00:00:00 [facility] Sex Ass[birth year] At [birth year] Universit y of 00:00:00 00:00:00 [facility] Smoking Status Start Date Stop Date Source Ex-smoker 2018-05-31 00:00:00 2018-05-31 00:00:00 Universi ty of [facility] Medications Ordered Filled Start Stop Current Ordering Indication Dosage Frequency Signature Comments Components Source Medication Medication Date Date Medication? Clinician (SIG) Name Name No known No Univers medications 4- ity of 08:55: [address] No known No Univers medications - ity of 08:55: [address] Immunizations Ordered Filled Immunization Date Status Comments Sour e Immunization Name Name Influenza Virus 2022-11-07 Completed Universit y of Vaccine Quad IM, 00:00:00 [facility] dical Preserv and ABX Branch Free 6 MO-64 YRS HPV9 2022-11-07 Completed University of 00:00:00 [facility] Influenza Virus 2022-11-07 Completed Universit y of Vaccine Quad IM, 00:00:00 [facility] dical Preserv and ABX Branch Free 6 MO-64 YRS HPV9 2022-11-07 Completed University of 00:00:00 [facility] SARS-COV-2 COVID-19 2021-04-12 Completed Unive rsity of PFIZER VACCINE 00:00:00 [facility] SARS-COV-2 COVID-19 2021-04-12 Completed Unive rsity of PFIZER VACCINE 00:00:00 [facility] SARS-COV-2 COVID-19 2021-04-12 Completed Unive rsity of PFIZER VACCINE 00:00:00 [facility] SARS-COV-2 COVID-19 2021-04-12 Completed Unive rsity of PFIZER VACCINE 00:00:00 [facility] SARS-COV-2 COVID-19 2021-04-12 Completed Unive rsity of PFIZER VACCINE 00:00:00 [facility] SARS-COV-2 COVID-19 2021-03-12 Completed Unive rsity of PFIZER VACCINE 00:00:00 [facility] SARS-COV-2 COVID-19 2021-03-12 Completed Unive rsity of PFIZER VACCINE 00:00:00 [facility] SARS-COV-2 COVID-19 2021-03-12 Completed Unive rsity of PFIZER VACCINE 00:00:00 [facility] SARS-COV-2 COVID-19 2021-03-12 Completed Unive rsity of PFIZER VACCINE 00:00:00 [facility] SARS-COV-2 COVID-19 2021-03-12 Completed Unive rsity of PFIZER VACCINE 00:00:00 [facility] Influenza Virus 2020-10-19 Completed Universit y of Vaccine Quad .5 mL 00:00:00 [facility] IM 6+ MO Branch Influenza Virus 2020-10-19 Completed Universit y of Vaccine Quad .5 mL 00:00:00 [place] [facility] IM 6+ MO Branch Influenza Virus 2020-10-19 Completed Universit y of Vaccine Quad .5 mL 00:00:00 [place] [facility] IM 6+ MO Branch Influenza Virus 2020-10-19 Completed Universit y of Vaccine Quad .5 mL 00:00:00 [place] [facility] IM 6+ MO Branch Influenza Virus 2020-10-19 Completed Universit y of Vaccine Quad .5 mL 00:00:00 [place] [facility] IM 6+ MO Branch Influenza Virus 2018-05-31 Completed Universit y of Vaccine Quad .5 mL 00:00:00 [place] [facility] IM 6+ MO Branch TDAP 2018-05-31 Completed University of 00:00:00 [facility] Influenza Virus 2018-05-31 Completed Universit y of Vaccine Quad .5 mL 00:00:00 [place] [facility] IM 6+ MO Branch TDAP 2018-05-31 Completed University of 00:00:00 [facility] Influenza Virus 2018-05-31 Completed Universit y of Vaccine Quad .5 mL 00:00:00 [facility] IM 6+ MO Branch TDAP 2018-05-31 Completed University of 00:00:00 [facility] Influenza Virus 2018-05-31 Completed Universit y of Vaccine Quad .5 mL 00:00:00 [facility] IM 6+ MO Branch TDAP 2018-05-31 Completed University of 00:00:00 [facility] Influenza Virus 2018-05-31 Completed Universit y of Vaccine Quad .5 mL 00:00:00 [facility] IM 6+ MO Branch TDAP 2018-05-31 Completed University of 00:00:00 [facility] PPD (TB) 2014-05-31 Completed University of 00:00:00 [facility] PPD (TB) 2014-05-31 Completed University of 00:00:00 [facility] PPD (TB) 2014-05-31 Completed University of 00:00:00 [facility] PPD (TB) 2014-05-31 Completed University of 00:00:00 [facility] PPD (TB) 2014-05-31 Completed University of 00:00:00 [facility] TDAP 2008-05-01 Completed University of 00:00:00 [facility] TDAP 2008-05-01 Completed University of 00:00:00 [facility] TDAP 2008-05-01 Completed University of 00:00:00 [facility] TDAP 2008-05-01 Completed University of 00:00:00 [facility] TDAP 2008-05-01 Completed University of 00:00:00 [facility] Vital Signs Vital Name Observation Time Observation Value Comments Source Systolic blood 2022-11-07 13:41:00 139 mm[Hg] Univer sity of pressure [facility] Diastolic blood 2022-11-07 13:41:00 84 mm[Hg] Unive rsity of pressure [facility] Body weight 2022-11-07 13:23:[address] [facility] BMI 2022-11-07 13:23:00 30.69 kg/m2 [facility] Heart rate 2022-11-07 13:23:00 56 /min [facility] Body temperature 2022-11-07 13:23:00 36.39 Kathy [facility] Respiratory rate 2022-11-07 13:23:00 18 /min [facility] Body height 2022-11-07 13:23:[address] [facility] Procedures Procedure Date / Time Performed Performing Clinician Lalita carter GARDASIL 9 (HPV 9V) 2022-11-07 14:05:09 Deepti Conner [facility] VACCINE [facility] FLU VACC (), 2022-11-07 13:43:52 Deepti Conner U [facility] 6 MO-64 YRS, .5ML, IM, Medical B ranch QUAD (FLUCELVAX) ASSIGNMENT OF BENEFITS 2022-11-07 13:00:05 Doctor Unassigned, No [facility] Name [facility] EXTERNAL PROVIDER 2022-01-09 05:01:00 Doctor Unassigned, No [facility] RECORDS Name [facility] Encounters Start End Encounter Admission Attending Care Care Encounter Source Date/Time Date/Time Type Type Clinicians Facility Department ID 2023-01-12 2023-01-12 Outpatient R [facility] [id number] Univers 09:00:00 09:00:00 [facility] 2022-12-29 2022-12-29 Outpatient R DALILA, [facility] [id number] Univers 09:45:00 09:45:00 DEEPTI ity o f [facility] 2022-12-26 2022-12-26 Outpatient R DALILA, [facility] [id number] Univers 09:45:00 09:45:00 DEEPTI ity o f [facility] 2022-12-14 2022-12-14 Outpatient R AKINSIPE, [facility] [id number] Univers 08:00:00 08:00:00 DEEPTI ity o f [facility] 2022-12-05 2022-12-05 Outpatient R LUCASPE, [facility] [id number] Univers 14:00:00 14:00:00 DEEPTI davidsony o f [facility] 2022-11-07 2022-11-07 Office Dalila, [facility] [id number] [facility] 08:15:00 09:06:27 Visit Deepti Dias [employer] [id number] ity of REGIONAL [id number] [place] as MATERNAL [phone] Med ical & CHILD [address] [place] [address] 2022-11-07 2022-11-07 Outpatient R DALILA [facility] [id number] Univers 08:15:00 09:06:27 DEEPTI chan o f [facility] 2022-11-07 2022-11-07 Orders Doctor [facility] [id number] Univers 00:00:00 00:00:00 Only Unassigned, VÍCTOR [id number] ity of [place] 4.2.7.2.686 [place] as [phone] [address] 2022-01-11 2022-01-11 Telephone [facility] [id number] Univers 00:00:00 00:00:00 Lin Fairbanks [employer] [id number] ity of REGIONAL [id number] [place] as MATERNAL [id number] Med ical & CHILD [address] [place] [address] 2022-01-09 2022-01-09 Orders Doctor [facility] [id number] Univers 00:00:00 00:00:00 Only Unassigned, VÍCTOR [id number] ity of [place] [facility] 4.2.7.2.686 Wayne as [phone] [address] 2021-12-16 2021-12-16 Orders Doctor [facility] [id number] Univers 00:00:00 00:00:00 Only Unassigned, VÍCTOR [id number] ity of [place] [facility] 4.2.7.2.686 [place] as [phone] [address] 2021-12-16 2021-12-16 Telephone [facility] [id number] Univers 00:00:00 00:00:00 Ivetteyouusfa R [employer]GER [id number] ity of REGIONAL 4.2.7.2.686 [place] as MATERNAL [phone] Med ical & CHILD [address] [place] [address] 2021-12-06 2021-12-06 Telephone [facility] [id number] Univers 00:00:00 00:00:00 Roshunda R [employer]GER [id number] ity of REGIONAL [id number] [place] as MATERNAL [phone] [facility] & CHILD [address] [place] [address] 2021-12-06 2021-12-06 [facility] [id number] Univers 00:00:00 00:00:00 Roshunda R [employer] [id number] ity of REGIONAL 4.2.7.2.686 [place] as MATERNAL [phone] [facility] & CHILD [address] [place] [address] 2021-12-05 2021-12-05 [facility] [id number] Univers 00:00:00 00:00:00 Rosnda R [employer]GER [id number] ity of REGIONAL 4.2.7.2.686 [place] as MATERNAL [phone] [facility] & CHILD [address] [place] [address] 2021-11-07 2021-11-07 [facility] [id number] Univers 08:15:00 09:27:39 [facility] 2021-11-07 2021-11-07 [facility]patient Mag[facility] [id number] Univers 08:15:00 09:27:39 ROSNDA ity o f [facility] 2021-11-07 2021-11-07 Office [facility] [id number] Univers 08:15:00 09:27:39 [facility] [employer] [id number] ity of REGIONAL 4.2.7.2.686 [place] as MATERNAL [phone] [facility] & CHILD [address] [place] [address] 2021-11-07 2021-11-07 Deejay KEITA [id number] Univers 00:00:00 00:00:00 Only Unassigned, VÍCTOR 350.1.13.10 ity of [place] [facility] [id number] [place] as [phone] [address] 2021-10-18 2021-10-18 Outpatient R [facility] [id number] Univers 08:00:00 08:00:00 DANIELLE ity [facility] 2021-05-11 2021-05-11 [facility] [id number] [facility] 00:00:00 00:00:00 Danielle L [employer] MANAGER 350.1.13.10 i ty of [facility] [id number] [place] as MATERNAL [phone] [facility] & CHILD [address] [place] [address] 2021-01-21 2021-01-21 Outpatient R [facility] [id number] Univers 08:45:00 08:45:00 [facility]07 2021-01-07 Outpatient R [facility] [id number] Univers 09:45:00 09:45:00 [facility] 2020-12-20 2020-12-20 Outpatient R [facility] [id number] Univers 09:30:00 09:30:00 DANIELLE [facility] 2020-10-19 2020-10-19 Outpatient R [facility] [id number] Univers 09:15:00 09:15:00 DANIELLE [facility] 2020-04-12 2020-04-02 Inpatient STAR SharriCATALINA [id number] [id number] [facility] 08:00:00 11:08:12 [place] [facility] 2020-03-11 2020-03-11 Outpatient [facility] PDPFEJL TPY [facility] 00:00:00 00:00:00 [id number] Results Test Description Test Time Test Comments Results Result [facility] e Comments BREAST ULTRASOUND 2021-12-07 BILATERAL 10:04:54 Name: Justino : 1980 Sex: F - DIAG MAMM BILATERAL [facility] CAD DIGITALBILATERAL DIGITAL DIAGNOSTIC MAMMOGRAM 3D/2D WITH CAD: 12/07/2021LINICAL: Bilateral breast masses. Digital breast tomosynthesis was performed in addition to routine CC and MLO views. Current mammographic images were evaluated by [employer] CAD (computer-aided detection) software. No prior exams [...] recommended. Shira Allen M.D. dm/:12/07/2021 10:04:54 Entry: donis - 12/09/2021 14:12:51Imaging Technologist: Sayda TOMAS, [facility]-FWletter sent: BIRADS 4/5 Biopsy Mammogram [...] views. Current mammographic images were evaluated by [employer] CAD (computer-aided detection) software. No prior exams [...]
--- NOTE | 2023-01-12 10:29 | ER ---
Nurse's Notes [facility] Name: Lucy Lamas Age: 42 yrs Sex: Female : 1980 Arrival Date: 01/12/2023 Time: 10:02 Bed IW1 Private MD: Diagnosis: Streptococcal pharyngitis Presentation: 01/12 10:15 Chief complaint: Patient states: sore throat X 2 days. Coronavirus screen: At this ld1 time, the client does not indicate any symptoms associated with coronavirus-19. Ebola Screen: No symptoms or risks identified at this time. Initial Sepsis Screen: Does the patient meet any 2 criteria? No. Patient's initial sepsis screen is negative. Does the patient have a suspected source of infection? No. Patient's initial sepsis screen is negative. Risk Assessment: Do you want to hurt yourself or someone else? Patient reports no desire to harm self or others. Onset of symptoms was January 12, 2023. 10:15 Method Of Arrival: Ambulatory ld1 10:15 Acuity: RAGINI 4 ld1 Triage Assessment: 10:16 General: Appears in no apparent distress. comfortable, Behavior is calm, cooperative, ld1 appropriate for age. Pain: Denies pain. EENT: Reports pain in mouth. Neuro: Level of Consciousness is awake, alert, obeys commands, Oriented to person, place, time, situation. Cardiovascular: Capillary refill < 3 seconds Patient's skin is warm and dry. Respiratory: Airway is patent Respiratory effort is even, unlabored. GI: Abdomen is flat, non-distended. Historical: - Allergies: 10:16 No Known Allergies; ld1 - PMHx: 10:16 None; ld1 - PSHx: 10:16 None; ld1 - Immunization history:: Adult Immunizations up to date, Client reports receiving the 2nd dose of the Covid vaccine. - Social history:: Smoking status: Patient denies any tobacco usage or history of. Patient/guardian denies using alcohol. Screenin:17 [facility] ED Fall Risk Assessment (Adult) History of falling in the last 3 months, ld1 including since admission No falls in past 3 months (0 pts). Abuse screen: Denies threats or abuse. Denies injuries from another. Nutritional screening: No deficits noted. Tuberculosis screening: No symptoms or risk factors identified. Assessment: 10:17 Reassessment: See triage assessment. ld1 10:35 Respiratory: Breath sounds are clear bilaterally. ld1 Vital Signs: 10:15 BP 136 / 88; Pulse 79; Resp 18; Temp 97.9(O); Pulse Ox 100% on R/A; Weight 89.81 kg; ld1 Height 5 ft. 7 in. ; Pain 0/10; 10:15 Body Mass Index 31.01 (89.81 kg, 170.18 cm) ld1 10:15 Pain Scale: Adult ld1 ED Course: 10:08 Patient arrived in ED. ts1 10:09 Darryn Hunter DO is Attending Physician. ms3 10:16 Triage completed. ld1 10:16 Arm band placed on right wrist. ld1 10:17 Patient has correct armband on for positive identification. Placed in gown. Bed in low ld1 position. Call light in reach. Side rails up X2. Pulse ox on. NIBP on. Notified ED physician of. Door closed. 10:17 No provider procedures requiring assistance completed. Patient did not have IV access ld1 during this emergency room visit. 10:27 John Porras DO is Referral Physician. ms3 Administered Medications: No medications were administered Medication: 10:17 VIS not applicable for this client. ld1 Outcome: 10:28 Discharge ordered by . ms3 10:35 Discharged to home ambulatory. ld1 10:35 Condition: stable 10:35 Discharge instructions given to patient, family, Instructed on discharge instructions, follow up and referral plans. medication usage, Demonstrated understanding of instructions, follow-up care, medications. 10:35 Patient left the ED. ld1 Signatures: Darryn Hunter DO DO ms3 Rebeca Hunter, RN RN ld1 Nora Paniagua PAS PAS ts1
--- NOTE | 2023-01-12 10:29 | EDPHYS ---
Physician Documentation [facility] Name: Lucy Lamas Age: 42 yrs Sex: Female : 1980 Arrival Date: 01/12/2023 Time: 10:02 Bed IW1 Private MD: ED Physician Darryn Hunter HPI: 01/12 10:30 This 42 yrs old Female presents to ER via Ambulatory with complaints of Sore ms3 Throat. 10:30 42-year-old female with no past medical history presents for sore throat for 2 days. ms3 Patient rates the pain an 8/10 and states the pain is worse with swallowing. Patient denies alleviating factors. Patient denies cough, vomiting. Patient endorses chills, nausea. . Historical: - Allergies: 10:16 No Known Allergies; ld1 - PMHx: 10:16 None; ld1 - PSHx: 10:16 None; ld1 - Immunization history:: Adult Immunizations up to date, Client reports receiving the 2nd dose of the Covid vaccine. - Social history:: Smoking status: Patient denies any tobacco usage or history of. Patient/guardian denies using alcohol. ROS: 10:30 Constitutional: Negative for fever, and chills. Neck: Negative for injury, pain, and ms3 swelling, Cardiovascular: Negative for chest pain, and palpitations. Respiratory: Negative for shortness of breath, cough, wheezing, and pleuritic chest pain, Abdomen/GI: Negative for abdominal pain, nausea, vomiting, diarrhea, and constipation, MS/Extremity: Negative for injury and deformity. 10:30 ENT: Positive for sore throat. 10:30 All other systems are negative. Exam: 10:30 Constitutional: This is a well developed, well nourished patient who is awake, alert, ms3 and in no acute distress. Head/Face: Normocephalic, atraumatic. Neck: Trachea midline, no cervical lymphadenopathy. Supple, full range of motion without nuchal rigidity, or vertebral point tenderness. No Meningismus. Chest/axilla: Normal chest wall appearance and motion. Nontender with no deformity. Cardiovascular: Regular rate and rhythm with a normal S1 and S2. No gallops, murmurs, or rubs. Normal PMI, no JVD. No pulse deficits. Respiratory: Lungs have equal breath sounds bilaterally, clear to auscultation and percussion. No rales, rhonchi or wheezes noted. No increased work of breathing, no retractions or nasal flaring. Abdomen/GI: Soft, non-tender, with normal bowel sounds. No distension or tympany. No guarding or rebound. No evidence of tenderness throughout. 10:30 ENT: Posterior pharynx: erythema, that is moderate, exudate, that is marked, peritonsillar mass, is not appreciated, pooling of secretions, is not appreciated. Vital Signs: 10:15 BP 136 / 88; Pulse 79; Resp 18; Temp 97.9(O); Pulse Ox 100% on R/A; Weight 89.81 kg; ld1 Height 5 ft. 7 in. ; Pain 0/10; 10:15 Body Mass Index 31.01 (89.81 kg, 170.18 cm) ld1 10:15 Pain Scale: Adult ld1 MDM: 10:27 Patient medically screened. ms3 10:30 Differential diagnosis: viral syndrome strep pharyngitis. Data reviewed: vital signs, ms3 nurses notes, and as a result, I will discharge patient. Care significantly affected by the following Social Determinants of Health: Poor access to healthcare and/or lack of insurance. Counseling: I had a detailed discussion with the patient and/or guardian regarding: the historical points, exam findings, and any diagnostic results supporting the discharge/admit diagnosis, the need for outpatient follow up, to return to the emergency department if symptoms worsen or persist or if there are any questions or concerns that arise at home. Special discussion: I discussed with the patient/guardian in detail that at this point there is no indication for admission to the hospital. It is understood, however, that if the symptoms persist or worsen the patient needs to return immediately for re-evaluation. ED course: Discussed physical exam findings with patient. Patient to follow-up with primary care physician in 2 to 3 days. Patient understands agrees with plan. All questions were answered. Return precautions discussed include worsening symptoms, or any other concerns. At time of discharge patient was alert and oriented x4, no apparent distress, nontoxic-appearing, speaking full sentences, tolerating p.o.. Administered Medications: No medications were administered Disposition Summary: 01/12/23 10:28 Discharge Ordered Location: Home ms3 Condition: Stable ms3 Diagnosis - Streptococcal pharyngitis ms3 Followup: ms3 - With: John Porras DO - When: 2 - 3 days - Reason: Recheck today's complaints Discharge Instructions: - Discharge Summary Sheet ms3 - Strep Throat, Adult ms3 Forms: - Medication Reconciliation Form ms3 - Thank You Letter ms3 - Antibiotic Education ms3 - Prescription Opioid Use ms3 Prescriptions: - Amoxicillin 500 mg Oral Capsule - take 1 capsule by ORAL route every 12 hours for 10 days; 20 tablet; Refills: 0, ms3 Product Selection Permitted Signatures: Darryn Hunter DO DO ms3 Rebeca Hunter, RN RN ld1
[2023-01-12 10:46] VITALS: BP 136/88; TEMP 97.9; O2SAT 100
== END 2023-01-12 10:35 | disposition home or self-care (01) ==
LOC: ER 10:02
DX: J02.0 Streptococcal pharyngitis (principal)
CPT/HCPCS: 99283